=== PATIENT | male | born 1975 | race African-American/Black ===

== ENCOUNTER 2016-05-17 16:40 | Inpatient (IN) | payer MEDICARE ==
[~2016-05-17] VITALS: Ht 175.3 cm; Wt 79.4 kg
[2016-05-17] MEDS ORDERED: SODIUM CHLORIDE FLUSH 10ML SYR IVF ONE (19:00)
[2016-05-17] MEDS ORDERED: ONDANSETRON 2MG/ML, 2ML IVPush ONE (19:00)
[2016-05-17] MEDS ORDERED: CARV25TA12 PO (20:24)
[2016-05-17] MEDS ORDERED: NIFE20CA PO (20:25)
[2016-05-17] MEDS ORDERED: DIAZ2TAB PO (20:25)
[2016-05-17] MEDS ORDERED: ALPR1TAB2 PO (20:25)
[2016-05-17] MEDS ORDERED: OXYC-223 PO (20:26)
[2016-05-17] MEDS ORDERED: CALC1TAB38 PO (20:26)
[2016-05-17 20:27] LABS: ASPARTATE AMINO TRANSFERASE 20 U/L (15-37)
[2016-05-17] MEDS ORDERED: CALC200T3 PO (20:27)
[2016-05-17 20:30] LABS: BLOOD UREA NITROGEN 108 mg/dL (7-18)
[2016-05-17] MEDS ORDERED: CLEVIDIPINE 50 ML IV ONE (20:40)
[2016-05-17] MEDS ORDERED: SODIUM BICARB 8.4%, 50ML SYRINGE IVPush ONE (21:00)
[2016-05-17] MEDS ORDERED: DEXTROSE 50%, 50ML SYRINGE IVPush ONE (21:00)
[2016-05-17] MEDS ORDERED: CALCIUM CHLORIDE 10%, 10ML SYR IVPush ONE (21:00)
[2016-05-17] MEDS ORDERED: INSULIN REGULAR 100 UNITS/ML, 3ML VIAL IVPush ONE (21:00)
[2016-05-17] MEDS: CLEVIDIPINE 50 ML IV PRN (21:02)
[2016-05-17] MEDS ORDERED: CALCIUM CHLORIDE 10%, 10ML SYR ONE (21:10)
[2016-05-17] MEDS ORDERED: SODIUM BICARB 8.4%, 50ML SYRINGE ONE (21:10)
[2016-05-17] MEDS ORDERED: INSULIN REGULAR 100 UNITS/ML, 3ML VIAL ONE (21:10)
[2016-05-17] MEDS ORDERED: DEXTROSE 50%, 50ML SYRINGE ONE (21:10)
[2016-05-17] MEDS ORDERED: MORPHINE SULFATE 4 MG/ML, 1ML IVPush PRN (21:30)
[2016-05-17] MEDS ORDERED: ONDANSETRON 2MG/ML, 2ML IVP PRN (21:30)
[2016-05-17] MEDS ORDERED: POLYETHYLENE GLYCOL 17 GM PACKET PO PRN (21:30)
[2016-05-17] MEDS ORDERED: ACETAMINOPHEN 325 MG TABLET PO PRN (21:30)
[2016-05-17] MEDS ORDERED: ENALAPRILAT 1.25 MG/ML, 2ML IV PRN (21:30)
[2016-05-17] MEDS ORDERED: DOCUSATE 100 MG CAPSULE PO PRN (21:30)
[2016-05-17] MEDS ORDERED: hydrALAzine 20 MG/ML, 1ML IV PRN (21:30)
[2016-05-17] MEDS ORDERED: LABETALOL 5MG/ML, 20ML IVPush PRN (21:30)
[2016-05-17] MEDS: NICOTINE 7 MG/24 HR PATCH.TD24 TD SCH (21:30)
[2016-05-17] MEDS ORDERED: CLEVIDIPINE 100 ML IV PRN (21:30)
[2016-05-17] MEDS ORDERED: MORPHINE SULFATE 4 MG/ML, 1ML ONE (21:53)
[2016-05-17] MEDS ORDERED: ONDANSETRON 2MG/ML, 2ML ONE (21:53)
[2016-05-17] MEDS ORDERED: HEPARIN 5,000 UNITS/ML, 1ML ONE (22:01)
[2016-05-17] MEDS: HEPARIN 5,000 UNITS/ML, 1ML SQ SCH (22:02)
[2016-05-17] MEDS: ALPRazolam 1MG TABLET PO SCH (22:10)
[2016-05-18] MEDS: CLEVIDIPINE 50 ML IV PRN
[2016-05-18] MEDS: CARVEDILOL 25 MG TABLET PO SCH ×3 (01:16→21:58)
[2016-05-18] MEDS: niFEDipine ER 60 MG TABLET.ER PO SCH ×3 (01:16→21:58)
[2016-05-18] MEDS: CALCIUM CARBONATE 500 MG TAB.CHEW PO SCH ×5 (01:16→16:36)
[2016-05-18 01:39] VITALS: BP 162/85
[2016-05-18] MEDS ORDERED: CLEVIDIPINE 100 ML IV PRN (03:30)
[2016-05-18] MEDS: HYDROcodone/APAP 5/325 TABLET PO PRN ×3 (04:01→16:36)
[2016-05-18 04:45] LABS: BLOOD UREA NITROGEN 52 mg/dL (7-18)
[2016-05-18] MEDS: HEPARIN 5,000 UNITS/ML, 1ML SQ SCH ×3 (05:56→21:59)
[2016-05-18] MEDS: SODIUM CHLORIDE FLUSH 10ML SYR IVF SCH ×2 (07:52→21:58)
[2016-05-18] MEDS: CALCIUM/VITAMIN D3 250-125 TABLET PO SCH (07:52)
[2016-05-18] MEDS: SENNA/DOCUSATE TABLET PO SCH (07:52)
[2016-05-18] MEDS ORDERED: DIAZEPAM 5 MG TABLET ONE (09:14)
[2016-05-18] MEDS: DIAZEPAM 2 MG TABLET PO SCH (09:37)
[2016-05-18 15:00] VITALS: BP 163/104
[2016-05-18] MEDS: NICOTINE 7 MG/24 HR PATCH.TD24 TD SCH (21:30)
[2016-05-18] MEDS: ALPRazolam 1MG TABLET PO SCH (21:58)
[2016-05-19 01:39] VITALS: BP 122/74
[2016-05-19] MEDS: HYDROcodone/APAP 5/325 TABLET PO PRN ×4 (01:54→20:27)
[2016-05-19] MEDS: HEPARIN 5,000 UNITS/ML, 1ML SQ SCH ×3 (05:30→20:28)
[2016-05-19 06:26] LABS: ASPARTATE AMINO TRANSFERASE 17 U/L (15-37); BLOOD UREA NITROGEN 42 mg/dL (7-18)
[2016-05-19 07:12] VITALS: BP 171/96
[2016-05-19] MEDS: CALCIUM CARBONATE 500 MG TAB.CHEW PO SCH ×3 (07:38→14:06)
[2016-05-19] MEDS: DIAZEPAM 2 MG TABLET PO SCH (08:05)
[2016-05-19] MEDS: niFEDipine ER 60 MG TABLET.ER PO SCH ×2 (08:07→20:27)
[2016-05-19] MEDS: CARVEDILOL 25 MG TABLET PO SCH ×2 (08:08→20:27)
[2016-05-19] MEDS: SENNA/DOCUSATE TABLET PO SCH (08:08)
[2016-05-19] MEDS: CALCIUM/VITAMIN D3 250-125 TABLET PO SCH (08:09)
[2016-05-19] MEDS: SODIUM CHLORIDE FLUSH 10ML SYR IVF SCH ×2 (08:10→20:27)
[2016-05-19 12:55] VITALS: BP 131/77
[2016-05-19 19:19] VITALS: BP 161/98
[2016-05-19] MEDS: ALPRazolam 1MG TABLET PO SCH (20:28)
[2016-05-19] MEDS: NICOTINE 7 MG/24 HR PATCH.TD24 TD SCH (20:28)
[2016-05-20 03:13] VITALS: BP 157/93
[2016-05-20] MEDS: HEPARIN 5,000 UNITS/ML, 1ML SQ SCH (05:48)
[2016-05-20 07:05] VITALS: BP 164/96
[2016-05-20] MEDS: CALCIUM CARBONATE 500 MG TAB.CHEW PO SCH ×2 (08:21→11:58)
[2016-05-20] MEDS: SENNA/DOCUSATE TABLET PO SCH (08:21)
[2016-05-20] MEDS: CALCIUM/VITAMIN D3 250-125 TABLET PO SCH (08:21)
[2016-05-20] MEDS: DIAZEPAM 2 MG TABLET PO SCH (08:21)
[2016-05-20] MEDS: CARVEDILOL 25 MG TABLET PO SCH (08:21)
[2016-05-20] MEDS: HYDROcodone/APAP 5/325 TABLET PO PRN (08:21)
[2016-05-20] MEDS: niFEDipine ER 60 MG TABLET.ER PO SCH (08:21)
[2016-05-20] MEDS: SODIUM CHLORIDE FLUSH 10ML SYR IVF SCH (08:21)
[2016-05-20 08:59] LABS: HEP B SURF. AB 110.2 mIU/mL (0.0-10.0)
[2016-05-20] MEDS ORDERED: GABA100C8 PO (09:15)
[2016-05-20] MEDS ORDERED: GABAPENTIN 100 MG CAPSULE PO SCH (09:30)
== END 2016-05-20 12:31 | disposition home or self-care (01) | DRG 291 ==
LOC: ED 18:24 → SUATTDRO 21:22 → EDIP 21:42 → CSU 22:41 → 4WST 05-18 09:59 → DCLOUNGE 05-20 12:12
PROVIDERS: ADMIT Family Medicine; ATTEND Family Medicine
PROC: 5A1D60Z (ICD-10-PCS; principal; 2016-05-17)
DX: I13.2 Hypertensive heart and chronic kidney disease with heart failure and with stage 5 chronic kidney disease, or end stage renal disease (principal); N18.6 End stage renal disease; I16.9 Hypertensive crisis, unspecified; E87.1 Hypo-osmolality and hyponatremia; E87.5 Hyperkalemia; D63.1 Anemia in chronic kidney disease; E11.22 Type 2 diabetes mellitus with diabetic chronic kidney disease; E87.6 Hypokalemia; F17.210 Nicotine dependence, cigarettes, uncomplicated; Z91.14 Patient's other noncompliance with medication regimen; Z99.2 Dependence on renal dialysis; Z79.899 Other long term (current) drug therapy; Z88.8 Allergy status to other drugs, medicaments and biological substances
CPT/HCPCS: 36415; 70450; 71010; 80048; 80053; 83735; 84100; 85025; 86704; 86706; 87081; 87340; 93005; 96374; 96375; J1644; J2405; C9248

== ENCOUNTER 2016-06-10 21:40 | Inpatient (IN) | payer MEDICARE ==
[~2016-06-10] VITALS: Ht 175.3 cm; Wt 82.4 kg
[~2016-06-10 21:40] MED LIST: ALPR1TAB2 PO; CALC1TAB38 PO; CALC200T3 PO; CARV25TA12 PO; DIAZ2TAB PO; GABA100C8 PO; NIFE20CA PO; OXYC-223 PO
[2016-06-10] MEDS ORDERED: NITROGLYCERIN OINT 2%, 1GM TP ONE ×2 (22:09→22:30)
[2016-06-10] MEDS ORDERED: ACETAMINOPHEN 500 MG TABLET ONE (22:09)
[2016-06-10] MEDS ORDERED: LABETALOL 5MG/ML, 20ML ONE (22:10)
[2016-06-10] MEDS ORDERED: MORPHINE SULFATE 4 MG/ML, 1ML ONE ×2 (22:17→23:23)
[2016-06-10] MEDS ORDERED: ONDANSETRON 2MG/ML, 2ML ONE (22:17)
[2016-06-10] MEDS ORDERED: CALC-35 PO (22:20)
[2016-06-10] MEDS ORDERED: ONDANSETRON 2MG/ML, 2ML IVPush ONE (22:30)
[2016-06-10] MEDS ORDERED: CEFTRIAXONE PMX 1GM/50ML 50 ML IVPB ONE (22:30)
[2016-06-10] MEDS ORDERED: SODIUM CHLORIDE FLUSH 10ML SYR IVF ONE (22:30)
[2016-06-10] MEDS ORDERED: AZITHROMYCIN 500 MG in SODIUM CHLORIDE 0.9% 250 ML IVPB ONE (22:30)
[2016-06-10] MEDS ORDERED: ACETAMINOPHEN 500 MG TABLET PO ONE (22:30)
[2016-06-10] MEDS ORDERED: LABETALOL 5MG/ML, 20ML IVPush ONE (22:30)
[2016-06-10 22:39] LABS: RAPID INFLUENZA A Negative (Negative); RAPID INFLUENZA B Negative (Negative)
[2016-06-10 22:41] LABS: HEMOGLOBIN 9.7 g/dL (13.7-18.0)
[2016-06-10] MEDS: MORPHINE SULFATE 4 MG/ML, 1ML IVPush PRN ×2 (22:41→23:30)
[2016-06-10] MEDS ORDERED: CEFTRIAXONE PMX 1GM/50ML 50 ML ONE (22:46)
[2016-06-10 22:51] LABS: ASPARTATE AMINO TRANSFERASE 16 U/L (15-37); BLOOD UREA NITROGEN 89 mg/dL (7-18)
[2016-06-10 22:59] LABS: IS PT STATUS REG ER OR PRE ER? YES
[2016-06-10] MEDS ORDERED: POLYETHYLENE GLYCOL 17 GM PACKET PO PRN (23:30)
[2016-06-10] MEDS ORDERED: ONDANSETRON 2MG/ML, 2ML IVP PRN (23:30)
[2016-06-10] MEDS ORDERED: BISACODYL 10 MG SUPP PR PRN (23:30)
[2016-06-10] MEDS ORDERED: LABETALOL 5MG/ML, 20ML IV PRN (23:30)
[2016-06-10] MEDS ORDERED: DOCUSATE 100 MG CAPSULE PO PRN (23:30)
[2016-06-10] MEDS ORDERED: GUAIFENESIN/DM 200-20MG, 10ML UDC PO PRN (23:30)
[2016-06-10] MEDS: AZITHROMYCIN 500 MG in SODIUM CHLORIDE 0.9% 250 ML IV SCH (23:30)
[2016-06-10] MEDS ORDERED: ACETAMINOPHEN 325 MG TABLET PO PRN (23:30)
[2016-06-11 00:44] VITALS: BP 167/122
[2016-06-11] MEDS ORDERED: ALBUTEROL/IPRATROPIUM 2.5MG/0.5MG, 3 ML ONE (01:00)
[2016-06-11] MEDS: ALBUTEROL/IPRATROPIUM 2.5MG/0.5MG, 3 ML NPPB SCH ×2 (01:05→07:00)
[2016-06-11] MEDS: niFEDipine ER 60 MG TABLET.ER PO SCH ×3 (01:19→20:15)
[2016-06-11] MEDS: CARVEDILOL 25 MG TABLET PO SCH ×3 (01:19→20:15)
[2016-06-11] MEDS: CALCIUM CARBONATE 500 MG TAB.CHEW PO SCH ×4 (01:20→15:58)
[2016-06-11] MEDS: OXYcodone/APAP 7.5/325MG TABLET PO SCH ×5 (01:20→20:14)
[2016-06-11] MEDS: GABAPENTIN 100 MG CAPSULE PO SCH ×3 (01:20→20:15)
[2016-06-11] MEDS: HEPARIN 5,000 UNITS/ML, 1ML SQ SCH ×3 (01:21→16:00)
[2016-06-11] MEDS: ALPRazolam 1MG TABLET PO SCH ×2 (01:21→20:14)
[2016-06-11 01:50] VITALS: BP 209/152
[2016-06-11] MEDS: hydrALAzine 20 MG/ML, 1ML IV PRN (01:52)
[2016-06-11 02:00] VITALS: BP 167/106
[2016-06-11] MEDS ORDERED: morphine SULFATE 10 MG/ML, 1ML IVPush ONE (02:00)
[2016-06-11 02:06] LABS: ABG COLLECTION SITE RIGHT RADIAL; COLLATERAL CIRCULATION TESTING NORMAL
[2016-06-11] MEDS ORDERED: OMNIPAQUE 350 MG/ML, 100ML BOTTLE ONE (03:02)
[2016-06-11 05:25] LABS: HEMOGLOBIN 10.2 g/dL (13.7-18.0)
[2016-06-11 05:48] LABS: ASPARTATE AMINO TRANSFERASE 15 U/L (15-37); BLOOD UREA NITROGEN 94 mg/dL (7-18)
[2016-06-11 05:54] LABS: IS PT STATUS REG ER OR PRE ER? NO
[2016-06-11] MEDS ORDERED: SODIUM BICARB 8.4%, 50ML SYRINGE ONE (06:12)
[2016-06-11] MEDS ORDERED: CALCIUM GLUCONATE 4.6 MEQ in SODIUM CHLORIDE 0.9% 50 ML IV ONE (06:30)
[2016-06-11] MEDS ORDERED: SODIUM BICARB 8.4%, 50ML SYRINGE IVPush ONE (06:30)
[2016-06-11] MEDS ORDERED: DEXTROSE 50%, 50ML SYRINGE IVPush ONE (06:30)
[2016-06-11] MEDS ORDERED: INSULIN REGULAR 100 UNITS/ML, 3ML VIAL IVPush ONE (06:30)
[2016-06-11] MEDS: SODIUM POLYSTYRENE SULFONATE ORAL SUSP PO ONE ×2 (06:42→09:33)
[2016-06-11] MEDS ORDERED: ALBUTEROL/IPRATROPIUM 2.5MG/0.5MG, 3 ML NPPB PRN (08:00)
[2016-06-11] MEDS: SODIUM CHLORIDE FLUSH 10ML SYR IVF SCH ×2 (09:44→20:14)
[2016-06-11] MEDS: CALCIUM/VITAMIN D3 250-125 TABLET PO SCH (09:45)
[2016-06-11] MEDS: CEFTRIAXONE PMX 1GM/50ML 50 ML IV SCH ×2 (12:48→22:47)
[2016-06-11 13:35] LABS: ABG COLLECTION SITE RIGHT RADIAL; COLLATERAL CIRCULATION TESTING NORMAL
[2016-06-11] MEDS: DIAZEPAM 2 MG TABLET PO SCH (16:00)
[2016-06-11] MEDS: AZITHROMYCIN 500 MG in SODIUM CHLORIDE 0.9% 250 ML IV SCH (23:17)
[2016-06-12] MEDS: HEPARIN 5,000 UNITS/ML, 1ML SQ SCH ×3 (01:57→16:06)
[2016-06-12 04:33] LABS: HEMOGLOBIN 10.4 g/dL (13.7-18.0)
[2016-06-12 04:46] LABS: BLOOD UREA NITROGEN 56 mg/dL (7-18)
[2016-06-12] MEDS: OXYcodone/APAP 7.5/325MG TABLET PO SCH ×4 (05:44→20:32)
[2016-06-12] MEDS: DIAZEPAM 2 MG TABLET PO SCH (08:53)
[2016-06-12] MEDS: niFEDipine ER 60 MG TABLET.ER PO SCH ×2 (08:53→20:32)
[2016-06-12] MEDS: CALCIUM/VITAMIN D3 250-125 TABLET PO SCH (08:54)
[2016-06-12] MEDS: CARVEDILOL 25 MG TABLET PO SCH ×2 (08:54→20:32)
[2016-06-12] MEDS: SODIUM CHLORIDE FLUSH 10ML SYR IVF SCH ×2 (08:54→20:32)
[2016-06-12] MEDS: GABAPENTIN 100 MG CAPSULE PO SCH ×2 (08:54→20:32)
[2016-06-12] MEDS: CALCIUM CARBONATE 500 MG TAB.CHEW PO SCH ×3 (08:54→16:06)
[2016-06-12] MEDS: CEFTRIAXONE PMX 1GM/50ML 50 ML IV SCH ×2 (11:22→23:00)
[2016-06-12] MEDS ORDERED: HEPARIN 1,000 UNITS/ML, 10ML IV ONE (11:30)
[2016-06-12] MEDS: DIPHENHYDRAMINE 25 MG CAPSULE PO PRN (18:21)
[2016-06-12] MEDS: ALPRazolam 1MG TABLET PO SCH (20:32)
[2016-06-12] MEDS: AZITHROMYCIN 500 MG in SODIUM CHLORIDE 0.9% 250 ML IV SCH (23:45)
[2016-06-13] MEDS: AZITHROMYCIN 500 MG in SODIUM CHLORIDE 0.9% 250 ML IV SCH
[2016-06-13] MEDS: HEPARIN 5,000 UNITS/ML, 1ML SQ SCH ×3 (01:05→16:58)
[2016-06-13 04:51] LABS: BLOOD UREA NITROGEN 35 mg/dL (7-18)
[2016-06-13] MEDS: OXYcodone/APAP 7.5/325MG TABLET PO SCH ×4 (06:05→20:35)
[2016-06-13] MEDS: SODIUM CHLORIDE FLUSH 10ML SYR IVF SCH ×2 (08:45→20:36)
[2016-06-13] MEDS: niFEDipine ER 60 MG TABLET.ER PO SCH ×2 (08:46→20:35)
[2016-06-13] MEDS: DIAZEPAM 2 MG TABLET PO SCH (08:46)
[2016-06-13] MEDS: CALCIUM/VITAMIN D3 250-125 TABLET PO SCH (08:46)
[2016-06-13] MEDS: CALCIUM CARBONATE 500 MG TAB.CHEW PO SCH ×3 (08:46→16:58)
[2016-06-13] MEDS: CARVEDILOL 25 MG TABLET PO SCH ×2 (08:46→20:37)
[2016-06-13] MEDS: GABAPENTIN 100 MG CAPSULE PO SCH ×2 (08:46→20:35)
[2016-06-13] MEDS: DIPHENHYDRAMINE 25 MG CAPSULE PO PRN (08:53)
[2016-06-13] MEDS: CEFTRIAXONE PMX 1GM/50ML 50 ML IV SCH ×2 (11:34)
[2016-06-13] MEDS: hydrALAzine 20 MG/ML, 1ML IV PRN (20:11)
[2016-06-13] MEDS ORDERED: SODIUM CHLORIDE 0.9% 500 ML IV SCH (20:30)
[2016-06-13] MEDS: ALPRazolam 1MG TABLET PO SCH (20:35)
[2016-06-14] MEDS: HEPARIN 5,000 UNITS/ML, 1ML SQ SCH ×3 (01:00→17:17)
[2016-06-14 05:37] LABS: HEMOGLOBIN 10.4 g/dL (13.7-18.0)
[2016-06-14 05:51] LABS: BLOOD UREA NITROGEN 57 mg/dL (7-18)
[2016-06-14] MEDS: OXYcodone/APAP 7.5/325MG TABLET PO SCH ×2 (06:00→10:22)
[2016-06-14] MEDS: CALCIUM CARBONATE 500 MG TAB.CHEW PO SCH ×3 (07:00→15:01)
[2016-06-14 07:56] VITALS: BP 175/107
[2016-06-14] MEDS: CALCIUM/VITAMIN D3 250-125 TABLET PO SCH (09:00)
[2016-06-14] MEDS: SODIUM CHLORIDE FLUSH 10ML SYR IVF SCH ×2 (09:00→20:44)
[2016-06-14] MEDS: niFEDipine ER 60 MG TABLET.ER PO SCH ×2 (10:22→20:45)
[2016-06-14] MEDS: GABAPENTIN 100 MG CAPSULE PO SCH ×2 (10:22→20:45)
[2016-06-14] MEDS: CARVEDILOL 25 MG TABLET PO SCH ×2 (10:22→20:44)
[2016-06-14] MEDS: DIAZEPAM 2 MG TABLET PO SCH (10:22)
[2016-06-14] MEDS ORDERED: ARANESP 100 MCG/ML **ESRD SQ SCH (11:00)
[2016-06-14] MEDS ORDERED: MORPHINE SULFATE 4 MG/ML, 1ML IVPush PRN (12:30)
[2016-06-14] MEDS: AMLODIPINE 5 MG TABLET PO SCH (15:01)
[2016-06-14] MEDS: CEFTRIAXONE PMX 1GM/50ML 50 ML IV SCH (15:06)
[2016-06-14 18:30] VITALS: BP 179/93
[2016-06-14] MEDS: ALPRazolam 1MG TABLET PO SCH (20:44)
[2016-06-14] MEDS: OXYcodone IR 5MG TABLET PO PRN (21:05)
[2016-06-15] MEDS: AZITHROMYCIN 500 MG in SODIUM CHLORIDE 0.9% 250 ML IV SCH (00:19)
[2016-06-15] MEDS: HEPARIN 5,000 UNITS/ML, 1ML SQ SCH ×3 (00:29→17:22)
[2016-06-15 01:08] VITALS: BP 168/94
[2016-06-15] MEDS: CEFTRIAXONE PMX 1GM/50ML 50 ML IV SCH ×2 (02:38→15:31)
[2016-06-15 06:31] LABS: BLOOD UREA NITROGEN 47 mg/dL (7-18)
[2016-06-15 06:39] LABS: TOTAL IRON BINDING CAPACITY 361 mcg/dL (250-450)
[2016-06-15 06:50] VITALS: BP 161/102
[2016-06-15] MEDS: DIAZEPAM 2 MG TABLET PO SCH (08:32)
[2016-06-15] MEDS: niFEDipine ER 60 MG TABLET.ER PO SCH ×2 (08:32→22:04)
[2016-06-15] MEDS: AMLODIPINE 5 MG TABLET PO SCH (08:32)
[2016-06-15] MEDS: CALCIUM/VITAMIN D3 250-125 TABLET PO SCH (08:33)
[2016-06-15] MEDS: SODIUM CHLORIDE FLUSH 10ML SYR IVF SCH ×2 (08:33→22:03)
[2016-06-15] MEDS: GABAPENTIN 100 MG CAPSULE PO SCH ×2 (08:33→22:07)
[2016-06-15] MEDS: CALCIUM CARBONATE 500 MG TAB.CHEW PO SCH ×3 (08:33→17:21)
[2016-06-15] MEDS: CARVEDILOL 25 MG TABLET PO SCH ×2 (08:33→22:04)
[2016-06-15] MEDS: OXYcodone IR 5MG TABLET PO PRN ×2 (08:38→17:22)
[2016-06-15] MEDS ORDERED: LOSARTAN 50MG TABLET PO SCH (10:00)
[2016-06-15 14:40] VITALS: BP 144/76
[2016-06-15 19:03] VITALS: BP 149/88
[2016-06-15] MEDS: LOSARTAN 50MG TABLET PO SCH (22:07)
[2016-06-15] MEDS: ALPRazolam 1MG TABLET PO SCH (22:08)
[2016-06-16] MEDS: AZITHROMYCIN 500 MG in SODIUM CHLORIDE 0.9% 250 ML IV SCH (00:01)
[2016-06-16] MEDS: OXYcodone IR 5MG TABLET PO PRN ×2 (00:02→10:14)
[2016-06-16] MEDS: HEPARIN 5,000 UNITS/ML, 1ML SQ SCH ×3 (00:09→17:00)
[2016-06-16 02:54] VITALS: BP 158/72
[2016-06-16] MEDS: CEFTRIAXONE PMX 1GM/50ML 50 ML IV SCH ×2 (03:44→17:00)
[2016-06-16 06:11] LABS: BLOOD UREA NITROGEN 65 mg/dL (7-18)
[2016-06-16 07:00] VITALS: BP 142/83
[2016-06-16] MEDS: SODIUM CHLORIDE FLUSH 10ML SYR IVF SCH ×2 (09:00→21:00)
[2016-06-16] MEDS: CALCIUM CARBONATE 500 MG TAB.CHEW PO SCH ×3 (09:46→22:54)
[2016-06-16] MEDS: DIAZEPAM 2 MG TABLET PO SCH (09:46)
[2016-06-16] MEDS: CARVEDILOL 25 MG TABLET PO SCH ×2 (09:47→22:55)
[2016-06-16] MEDS: LOSARTAN 50MG TABLET PO SCH (09:48)
[2016-06-16] MEDS: GABAPENTIN 100 MG CAPSULE PO SCH ×2 (09:48→22:55)
[2016-06-16] MEDS: CALCIUM/VITAMIN D3 250-125 TABLET PO SCH (09:48)
[2016-06-16] MEDS: AMLODIPINE 5 MG TABLET PO SCH (09:48)
[2016-06-16] MEDS: niFEDipine ER 60 MG TABLET.ER PO SCH ×2 (09:48→22:54)
[2016-06-16 13:40] VITALS: BP 115/54
[2016-06-16 19:50] VITALS: BP 127/57
[2016-06-16] MEDS: ALPRazolam 1MG TABLET PO SCH (22:56)
[2016-06-17] MEDS: HEPARIN 5,000 UNITS/ML, 1ML SQ SCH ×3 (01:00→21:27)
[2016-06-17] MEDS: AZITHROMYCIN 500 MG in SODIUM CHLORIDE 0.9% 250 ML IV SCH (02:03)
[2016-06-17] MEDS: CEFTRIAXONE PMX 1GM/50ML 50 ML IV SCH ×2 (04:28→15:00)
[2016-06-17 05:51] LABS: BLOOD UREA NITROGEN 41 mg/dL (7-18)
[2016-06-17 07:38] VITALS: BP 126/73
[2016-06-17] MEDS: CALCIUM/VITAMIN D3 250-125 TABLET PO SCH (08:27)
[2016-06-17] MEDS: niFEDipine ER 60 MG TABLET.ER PO SCH ×2 (08:27→21:28)
[2016-06-17] MEDS: DIAZEPAM 2 MG TABLET PO SCH (08:27)
[2016-06-17] MEDS: AMLODIPINE 5 MG TABLET PO SCH (08:27)
[2016-06-17] MEDS: LOSARTAN 50MG TABLET PO SCH (08:28)
[2016-06-17] MEDS: GABAPENTIN 100 MG CAPSULE PO SCH ×2 (08:28→21:28)
[2016-06-17] MEDS: CARVEDILOL 25 MG TABLET PO SCH ×2 (08:28→21:28)
[2016-06-17] MEDS: CALCIUM CARBONATE 500 MG TAB.CHEW PO SCH ×3 (08:29→16:04)
[2016-06-17] MEDS: SODIUM CHLORIDE FLUSH 10ML SYR IVF SCH ×2 (08:29→21:29)
[2016-06-17] MEDS: OXYcodone IR 5MG TABLET PO PRN ×3 (08:37→22:44)
[2016-06-17] MEDS ORDERED: OXYC5TAB3 PO (11:19)
[2016-06-17 19:52] VITALS: BP 134/78
[2016-06-17] MEDS: DIPHENHYDRAMINE 25 MG CAPSULE PO PRN (21:27)
[2016-06-17] MEDS: ALPRazolam 1MG TABLET PO SCH (21:27)
[2016-06-18] MEDS: AZITHROMYCIN 500 MG in SODIUM CHLORIDE 0.9% 250 ML IV SCH (02:15)
[2016-06-18] MEDS: CEFTRIAXONE PMX 1GM/50ML 50 ML IV SCH (03:22)
[2016-06-18] MEDS: HEPARIN 5,000 UNITS/ML, 1ML SQ SCH ×2 (04:00→12:00)
[2016-06-18] MEDS: OXYcodone IR 5MG TABLET PO PRN (04:12)
[2016-06-18] MEDS: DIPHENHYDRAMINE 25 MG CAPSULE PO PRN (04:12)
[2016-06-18 08:00] VITALS: BP 164/86
[2016-06-18] MEDS: GABAPENTIN 100 MG CAPSULE PO SCH (08:32)
[2016-06-18] MEDS: niFEDipine ER 60 MG TABLET.ER PO SCH (08:32)
[2016-06-18] MEDS: CALCIUM/VITAMIN D3 250-125 TABLET PO SCH (08:32)
[2016-06-18] MEDS: DIAZEPAM 2 MG TABLET PO SCH (08:32)
[2016-06-18] MEDS: CALCIUM CARBONATE 500 MG TAB.CHEW PO SCH ×3 (08:33→17:26)
[2016-06-18] MEDS: AMLODIPINE 5 MG TABLET PO SCH (08:33)
[2016-06-18] MEDS: LOSARTAN 50MG TABLET PO SCH (08:34)
[2016-06-18] MEDS: CARVEDILOL 25 MG TABLET PO SCH (08:34)
[2016-06-18] MEDS: SODIUM CHLORIDE FLUSH 10ML SYR IVF SCH (08:42)
[2016-06-18] MEDS ORDERED: CEFDINIR 300 MG CAPSULE PO SCH (12:30)
[2016-06-18] MEDS ORDERED: AZITHROMYCIN 500 MG TABLET PO SCH (12:30)
[2016-06-18] MEDS ORDERED: DIPHENHYDRAMINE 25 MG CAPSULE PO PRN (15:30)
[2016-06-18] MEDS ORDERED: HALOPERIDOL 5 MG TABLET PO PRN (15:30)
[2016-06-18] MEDS ORDERED: HALOPERIDOL 5 MG/ML IM PRN (15:30)
[2016-06-18] MEDS ORDERED: LORazepam 2 MG/ML, 1ML IM PRN (15:30)
[2016-06-18] MEDS ORDERED: DIPHENHYDRAMINE 50 MG/ML, 1ML IVPush PRN (15:30)
[2016-06-18 18:59] VITALS: BP 139/76
[2016-06-18] MEDS ORDERED: DIAZEPAM 5 MG TABLET PO SCH (21:00)
== END 2016-06-18 20:39 | disposition left against medical advice (07) | DRG 871 ==
LOC: ED 22:54 → EDIP 22:55 → SUATTDRO 22:59 → ED 23:00 → 4WST 06-11 00:37 → CCU 06-11 03:23 → 4WST 06-14 00:17
PROC: 5A1D60Z (ICD-10-PCS; principal; 2016-06-11)
DX: A41.9 Sepsis, unspecified organism (principal); J15.9 Unspecified bacterial pneumonia; N18.6 End stage renal disease; J96.01 Acute respiratory failure with hypoxia; I13.11 Hypertensive heart and chronic kidney disease without heart failure, with stage 5 chronic kidney disease, or end stage renal disease; E87.1 Hypo-osmolality and hyponatremia; R45.851 Suicidal ideations; E87.5 Hyperkalemia; E11.22 Type 2 diabetes mellitus with diabetic chronic kidney disease; I16.0 Hypertensive urgency; D63.1 Anemia in chronic kidney disease; E11.65 Type 2 diabetes mellitus with hyperglycemia; E83.51 Hypocalcemia; Z91.14 Patient's other noncompliance with medication regimen; Z99.2 Dependence on renal dialysis; Z81.1 Family history of alcohol abuse and dependence; Z83.79 Family history of other diseases of the digestive system; Z84.89 Family history of other specified conditions; Z88.8 Allergy status to other drugs, medicaments and biological substances
CPT/HCPCS: 36415; 36600; 71010; 71275; 80048; 80053; 80069; 82728; 82803; 83540; 83550; 83605; 83735; 84100; 84132; 84145; 84484; 85025; 87040; 87081; 87205; 87400; 93005; 94640; 96374; J0456; J0610; J0696; J0882; J1644; J1815; J2405; J7620; Q9967; J0360; J7050; Q0163